=== PATIENT | female | born 1970 | race African-American/Black ===

== ENCOUNTER 2021-10-09 09:53 | Outpatient (CLI) | payer OTHER, SELFPAY ==
--- NOTE | 2021-10-09 10:15 | FL_ITS ---
Final Report Patient: MCKENNA GONZALEZ Facility:?[facility] Patient ID:?[id number] Site Patient ID:?[id number]. Site :?[id number] Study:?XRay Chest/Abd ESOPHOGRAM (DR SHAH TO READ)-10/09/2021 10:35:40 AM Ordering Physician:?Shasha Vera Final Report: Indication: Reflux Technique: Esophagram Comparison: No comparison Findings: Patient was given thin and thick barium with effervescent granules which were followed fluoroscopically. Hypopharynx is clear. Esophagus appears normal. No mass lesion no areas of stricturing no hiatal hernia seen. No ulceration. Impression: Unremarkable esophagram. 43 seconds fluoro time. Seven images obtained. Dictated by Ann Shah MD @ 10/09/2021 11:02:14 AM (Electronic Signature)
== END 2021-10-09 09:54 | disposition home or self-care (01) ==
PROVIDERS: Visit Provider Internal Medicine Gastroenterology
DX: K21.00 Gastro-esophageal reflux disease with esophagitis, without bleeding (principal); R13.10 Dysphagia, unspecified
CPT/HCPCS: 74221